=== PATIENT | male | born 2000 | race Caucasian/White ===

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

== ENCOUNTER 2022-02-28 16:43 | Emergency (ER) | payer OTHER ==
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
[2022-02-28 18:15] VITALS: BP 126/78; PULSE 78; RESP 18; TEMP 98
== END 2022-02-28 18:15 | disposition home or self-care (01) ==
LOC: EC 16:43
DX: S09.90XA Unspecified injury of head, initial encounter (principal); S00.83XA Contusion of other part of head, initial encounter; V68.5XXA Driver of heavy transport vehicle injured in noncollision transport accident in traffic accident, initial encounter
CPT/HCPCS: 70450; 70486; 72125; 99284

== ENCOUNTER 2023-01-27 17:22 | Emergency (ER) | payer OTHER ==
[2023-01-27 17:42] VITALS: BP 146/77; TEMP 98.1
--- NOTE | 2023-01-27 19:22 | ED ---
General Adult HPI - General Chief complaint: Urogenital Stated complaint: Testicular pain Time Seen by Provider: 01/27/23 18:55 Source: patient, RN notes reviewed, old records reviewed Mode of arrival: ambulatory Limitations: no limitations - History of Present Illness Initial comments: This is a 22-year-old male who presents emergency Department complaining of left testicular pain. 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 Patient states she went to an urgent care they did a urinalysis and stated that it was normal. Patient came into the emergency department to be further evaluated. Patient denies any fever or chills. Patient denies any dysuria hematuria urinary frequency. Patient denies any abdominal pain. Patient has any other symptoms at this time. Patient states when he sits still and in his in his feet he doesn't have much pain but he walks around the more he walks more hurts. - Related Data Allergies Allergy/AdvReac Type Severity Reaction Status Date / Time No Known Allergies Allergy Verified 02/28/22 17:07 Review of Systems ROS Statement: Those systems with pertinent positive or pertinent negative responses have been documented in the HPI. ROS Other: All systems not noted in ROS Statement are negative. Past Medical History Past Medical History: No Reported History History of Any Multi-Drug Resistant Organisms: None Reported Past Surgical History: No Surgical Hx Reported Past Psychological History: No Psychological Hx Reported Smoking Status: Never smoker Past Alcohol Use History: Occasional Past Drug Use History: None Reported General Exam - General Exam Comments Initial Comments: GENERAL: Patient is well-developed and well-nourished. Patient is nontoxic and well- hydrated and is in no acute distress. ENT: Neck is soft and supple. No significant lymphadenopathy is noted. Oropharynx is clear. Moist mucous membranes. Neck has full range of motion without eliciting any pain. EYES: The sclera were anicteric and conjunctiva were pink and moist. Extraocular movements were intact and pupils were equal round and reactive to light. Eyelids were unremarkable. ABDOMEN: Soft and nontender with normal bowel sounds. GENITALIA: Scrotum shows no redness no swelling no area of tenderness no lesions. Testicular exam there was no tenderness. Patient had no inguinal hernias chantal aterally. There is a area just above the left testicle that was minimally tender on palpation but again no redness or swelling to the area. SKIN: Skin is clear with no lesions or rashes and otherwise unremarkable. NEUROLOGIC: Patient is alert and oriented x3. Cranial nerves II through XII are grossly intact. Motor and sensory are also intact. Normal speech, volume and content. Symmetrical smile. MUSCULOSKELETAL: Normal extremities with adequate strength and full range of motion. LYMPHATICS: No significant lymphadenopathy is noted PSYCHIATRIC: Normal psychiatric evaluation. Limitations: no limitations Course Vital Signs 01/27/23 17:40 Temperature 98.1 F Pulse Rate 100 Respiratory 20 Rate Blood Pressure 146/77 O2 Sat by Pulse 99 Oximetry Medical Decision Making - Medical Decision Making Was pt. sent in by a medical professional or institution (, [facility], ADULT CAREGIVER, urgent care, hospital, or retirement...) When possible be specific @ -Patient was sent over by urgent care Did you speak to anyone other than the patient for history (EMS, parent, family, police, friend...)? What history was obtained from this source @ -No Did you review nursing and triage notes (agree or disagree)? Why? @ -I reviewed and agree with nursing and triage notes Were old charts reviewed (outside hosp., previous admission, EMS record, old EKG, old radiological studies, urgent care reports/EKG's, retirement records)? Report findings @ -No old charts were reviewed Differential Diagnosis (chest pain, altered mental status, abdominal pain women, abdominal pain men, vaginal bleeding, weakness, fever, dyspnea, syncope, headache, dizziness, GI bleed, back pain, seizure, CVA, palpatations, mental health, musculoskeletal)? @ -Epididymitis, hydrocele, varicocele, testicular torsion, orchitis, this is not all inclusive list EKG interpreted by me (3pts min.). @ -As above X-rays interpreted by me (1pt min.). @ -None done CT interpreted by me (1pt min.). @ -None done U/S interpreted by me (1pt. min.). @ -Ultrasound showed no torsion or no other acute abnormality What testing was considered but not performed or refused? (CT, X-rays, U/S, labs)? Why? @ -None What meds were considered but not given or refused? Why? @ -None Did you discuss the management of the patient with other professionals (professionals i.e. , [facility]LOS, ADULT CAREGIVER, lab, RT, psych nurse, perinatal social worker, printing and stamping supervisor, teacher, hotel security officer, employment case manager)? Give summary @ -No Was smoking cessation discussed for >3mins.? @ -No Was critical care preformed (if so, how long)? @ -No Were there social determinants of health that impacted care today? How? (Homelessness, low income, unemployed, alcoholism, drug addiction, transportation, low edu. Level, literacy, decrease access to med. care, long term, rehab)? @ -No Was there de-escalation of care discussed even if they declined (Discuss DNR or withdrawal of care, Hospice)? DNR status @ -No What co-morbidities impacted this encounter? (DM, HTN, Smoking, COPD, CAD, Cancer, CVA, ARF, Chemo, Hep., AIDS, mental health diagnosis, sleep apnea, morbid obesity)? @ -None Was patient admitted / discharged? Hospital course, mention meds given and route, prescriptions, significant lab abnormalities, going to OR and other pertinent info. @ -Patient states mostly at rest the pain is very minimal but he gets up and walks around the longer he walks the more she area in the left groin aches. Ultrasound done showed no acute abnormality. Undiagnosed new problem with uncertain prognosis? @ -No Drug Therapy requiring intensive monitoring for toxicity (Heparin, Nitro, Insulin, Cardizem)? @ -No Were any procedures done? @ -No Diagnosis/symptom? @ -Groin strain Acute, or Chronic, or Acute on Chronic? @ -Acute Uncomplicated (without systemic symptoms) or Complicated (systemic symptoms)? @ -Uncomplicated Side effects of treatment? @ -No Exacerbation, Progression, or Severe Exacerbation? @ -No Poses a threat to life or bodily function? How? (Chest pain, [place], [place], pneumonia, PE, COPD, DKA, ARF, appy, cholecystitis, CVA, Diverticulitis, Homicidal, Suicidal, threat to staff... and all critical care pts) @ -No Disposition Clinical Impression: Groin strain Disposition: HOME SELF-CARE Condition: Good Instructions (If sedation given, give patient instructions): Groin Strain (ED) Is patient prescribed a controlled substance at d/c from ED?: No Referrals: Chelsea Cullen DO [Primary Care Provider] - 1-2 days Time of Disposition: 20:12
--- NOTE | 2023-01-27 20:14 | US ---
EXAMINATION TYPE: US scrotum with doppler. Grayscale and color Doppler Duplex imaging performed of alvin huddleston scrotum. DATE OF EXAM: 01/27/2023 COMPARISON: NONE CLINICAL HISTORY: left testicle paiin. L testicular pain x 1 day EXAM MEASUREMENTS: TESTICLES: Right Testicle: 4.7 x 2.9 x 2.6 cm Left Testicle: 4.6 x 3.0 x 2.6 cm EPIDIDYMIS HEAD: Right Epididymis: 0.6 cm Left Epididymis: 0.9 cm Doppler performed to assess for testicular vascularity; good bilateral color flow and waveforms are s een. There is no evidence of testicular torsion. Presence of hydroceles: Small left hydrocele. Presence of varicoceles: None. IMPRESSION: No acute process. Negative for left testicular torsion.
[2023-01-27 20:42] VITALS: PULSE 83; RESP 16
== END 2023-01-27 20:42 | disposition home or self-care (01) ==
LOC: EC 17:22
DX: S76.912A Strain of unspecified muscles, fascia and tendons at thigh level, left thigh, initial encounter (principal); X58.XXXA Exposure to other specified factors, initial encounter
CPT/HCPCS: 76870; 93975; 99283